=== PATIENT | male | born 1955 | race Caucasian/White ===

== ENCOUNTER 2017-03-07 08:47 | Inpatient (IN) | payer OTHER ==
[~2017-03-07] VITALS: Ht 182.9 cm; Wt 99.4 kg
[2017-03-07] VITALS (9 sets, daily range): BP systolic 91–121; BP diastolic 62–71; PULSE 82–114; RESP 16–20; TEMP 96.2–98.4; O2SAT 96–100
[2017-03-07] MEDS ORDERED: SODIUM CHLOR 0.9% 1000 ML INJ 1,000 ML IV SCH (10:03)
[2017-03-07] MEDS ORDERED: SODIUM CHLORIDE 0.9% FLUSH 10 ML FLUSH IV FLUSH PRN ×2 (10:15→12:45)
--- NOTE | 2017-03-07 10:20 | PD ---
HPI Chief Complaint: GI Complaint Time Seen by Provider: 10:02 Travel History International Travel<30 days: No Contact w/Intl Traveler<30days: No Traveled to known affect area: No History of Present Illness HPI Patient is 61-year-old male who presents to emergency room complaints of black tarry stools as well as red blood per vomitus. Patient reports that he has had history of gastric ulcers, reports that the last time he had problems with bleeding ulcers was 25 years ago. At that time, patient had blood transfusions and was seen by gastrointestinal doctors in [place]. Patient reports that he has had no issues with this recently, reports that he has not follow-up with a gastro intestinal doctor since his bleeding ulcer 25 years ago. Patient reports that he normally has bowel movements twice a day, reports that he did not have a bowel movement yesterday. Patient reports that last night, he drink some tamika humphrey and of vomiting and had streaks of bright red blood in his vomitus. Patient reports that this morning, he noticed dark tarry stools. Patient reports that he does take a baby aspirin every several day, he is feeling lightheaded and dizzy. Patient reports that he feels overall weakness with an achy body. Denies chest pain/sob. Denies abdominal pain. Denies chest pain/sob. PFSH Past Medical History Ulcer: Yes (gastric ulcers) Past Surgical History Surgical History: No Previous Surgery Social History Alcohol Use: No Tobacco Use: No Substance Use: No Allergies-Medications (Allergen,Severity, Reaction): Coded Allergies: No Known Allergies (Unverified , 03/07/17) Reported Meds & Prescriptions Reported Meds & Active Scripts Active Reported Glucosamine (Glucosamine Sulfate) 1,000 Mg Cap 1,000 Mg PO DAILY Aspirin Low Dose (Aspirin) 81 Mg Chew 81 Mg CHEW DAILY Review of Systems General / Constitutional: No: Fever Eyes: No: Visual changes HENT: Positive: Lightheadedness, No: Headaches Cardiovascular: No: Chest Pain or Discomfort Respiratory: No: Shortness of Breath Gastrointestinal: Positive: Hematemesis, Hematochezia, Constipation, No: Nausea , Vomiting, Abdominal Pain Genitourinary: No: Dysuria Musculoskeletal: No: Pain Skin: No Rash Neurologic: Positive: Dizziness, No: Weakness Psychiatric: No: Depression Endocrine: No: Polydipsia Hematologic/Lymphatic: No: Easy Bruising Physical Exam Narrative GENERAL: Mild distress SKIN: Focused skin assessment warm/dry. HEAD: Atraumatic. Normocephalic. EYES: Pupils equal and round. No scleral icterus. No injection or drainage. ENT: No nasal bleeding or discharge. Mucous membranes pink and moist. NECK: Trachea midline. No JVD. CARDIOVASCULAR: Tachycardic. No murmur appreciated. RESPIRATORY: No accessory muscle use. Clear to auscultation. Breath sounds equal bilaterally. GASTROINTESTINAL: Abdomen soft, non-tender, nondistended. Hepatic and splenic margins not palpable. Rectal exam performed with RN at bedside - patient with melanotic stools which are heme positive MUSCULOSKELETAL: No obvious deformities. No clubbing. No cyanosis. No edema. NEUROLOGICAL: Awake and alert. No obvious cranial nerve deficits. Motor grossly within normal limits. Normal speech. PSYCHIATRIC: Appropriate mood and affect; insight and judgment normal. Data Data Last Documented VS Vital Signs Date Time Temp Pulse Resp B/P (MAP) Pulse Ox O2 Delivery O2 Flow Rate FiO2 03/07/17 12:22 99 18 114/67 (83) 99 Room Air 03/07/17 08:54 98.4 Orders Orders Complete Blood Count With Diff (03/07/17 10:03) Comprehensive Metabolic Panel (03/07/17 10:03) Lipase (03/07/17 10:03) Prothrombin Time / Inr (Pt) (03/07/17 10:03) Act Partial Throm Time (Ptt) (03/07/17 10:03) Urinalysis - C+S If Indicated (03/07/17 10:03) Iv Access Insert/Monitor (03/07/17 10:03) Ecg Monitoring (03/07/17 10:03) Oximetry (03/07/17 10:03) NPO (03/07/17 10:03) Sodium Chlor 0.9% 1000 Ml Inj (Ns 1000 M (03/07/17 10:03) Sodium Chloride 0.9% Flush (Ns Flush) (03/07/17 10:15) Electrocardiogram (03/07/17 10:03) Type And Screen (03/07/17 10:03) Influenzae A/B Antigen (03/07/17 10:03) Sodium Chloride 0.9... W/Pantoprazole In (03/07/17 11:11) Sodium Chloride 0.9... W/Pantoprazole In (03/07/17 11:11) Sodium Chlor 0.9% 1000 Ml Inj (Ns 1000 M (03/07/17 11:15) Insulin Human Regular Inj (Novolin R Inj (03/07/17 12:15) Admit Order (Ed Use Only) (03/07/17 12:29) Consult Gastroenterology (03/07/17 ) Labs Laboratory Tests Test 03/07/17 10:23 03/07/17 12:10 White Blood Count 12.1 TH/MM3 Red Blood Count 3.90 MIL/MM3 Hemoglobin 11.2 GM/DL Hematocrit 33.1 % Mean Corpuscular Volume 84.8 FL Mean Corpuscular Hemoglobin 28.7 PG Mean Corpuscular Hemoglobin Concent 33.8 % Red Cell Distribution Width 13.1 % Platelet Count 282 TH/MM3 Mean Platelet Volume 9.0 FL Neutrophils (%) (Auto) 78.9 % Lymphocytes (%) (Auto) 14.3 % Monocytes (%) (Auto) 6.4 % Eosinophils (%) (Auto) 0.1 % Basophils (%) (Auto) 0.3 % Neutrophils # (Auto) 9.6 TH/MM3 Lymphocytes # (Auto) 1.7 TH/MM3 Monocytes # (Auto) 0.8 TH/MM3 Eosinophils # (Auto) 0.0 TH/MM3 Basophils # (Auto) 0.0 TH/MM3 CBC Comment DIFF FINAL Differential Comment Prothrombin Time 10.9 SEC Prothromb Time International Ratio 1.0 RATIO Activated Partial Thromboplast Time 20.3 SEC Blood Urea Nitrogen 35 MG/DL Creatinine 0.94 MG/DL Random Glucose 493 MG/DL Total Protein 6.2 GM/DL Albumin 3.2 GM/DL Calcium Level 8.4 MG/DL Alkaline Phosphatase 49 U/L Aspartate Amino Transf (AST/SGOT) 8 U/L Alanine Aminotransferase (ALT/SGPT) 17 U/L Total Bilirubin 0.5 MG/DL Sodium Level 135 MEQ/L Potassium Level 4.3 MEQ/L Chloride Level 103 MEQ/L Carbon Dioxide Level 19.6 MEQ/L Anion Gap 12 MEQ/L Estimat Glomerular Filtration Rate 82 ML/MIN Lipase 114 U/L Urine Collection Type CLEAN CATCH Urine Color YELLOW Urine Turbidity CLEAR Urine pH 5.5 Urine Specific [place] 1.035 Urine Protein NEG mg/dL Urine Glucose (UA) 1000 OR GREATER mg/dL Urine Ketones 15 mg/dL Urine Occult Blood NEG Urine Nitrite NEG Urine Bilirubin NEG Urine Leukocyte Esterase NEG Urine RBC 0-3 /hpf Urine Squamous Epithelial Cells 0-5 /hpf Microscopic Urinalysis Comment CULT NOT INDICATED Urine Collection Time 12:10 [facility] Medical Decision Making Medical Screen Exam Complete: Yes Emergency Medical Condition: Yes Medical Record Reviewed: Yes Interpretation(s) EKG at 1030: Sinus tach at 111bpm, qt/qtc: 332/397 Vital Signs Date Time Temp Pulse Resp B/P (MAP) Pulse Ox O2 Delivery O2 Flow Rate FiO2 03/07/17 08:54 98.4 114 16 116/71 (86) 99 Differential Diagnosis Differential includes gastric ulcer, anemia, electrolyte abnormality Narrative Course 61-year-old male who presents to emergency room for evaluation of possible bleeding gastric ulcer. Patient reports that he noticed bright red blood in his vomitus last night, reports that this morning he had melanotic stools. Patient reports that symptoms are similar to when he had a bleeding gastric ulcer 25 years ago in [facility]. Patient has not followed up with a sand caster since then. Patient currently takes a baby aspirin as well as chondroitin glucosamine, he is not on any other medications. Patient is tachycardic on evaluation, patient is symptomatic and that he feels lightheaded and dizzy. CBC, CMP, type and screen ordered for patient. Protonix as well as Protonix drip ordered as patient is presumed to have an upper GI bleed. IV fluids ordered for patient. Patient was placed on a air sampling and monitoring upon arrival to the emergency room. Patient will require admission to the hospital for further workup of upper GI bleed. Vital Signs Date Time Temp Pulse Resp B/P (MAP) Pulse Ox O2 Delivery O2 Flow Rate FiO2 03/07/17 11:26 97 18 91/69 (76) 100 Room Air 03/07/17 10:24 16 03/07/17 10:24 100 Room Air 03/07/17 08:54 98.4 114 16 116/71 (86) 99 CBC & BMP Diagram 03/07/17 10:23 Total Protein 6.2 L, Albumin 3.2 L, Calcium Level 8.4 L, Alkaline Phosphatase 49 , Aspartate Amino Transf (AST/SGOT) 8 L, Alanine Aminotransferase (ALT/SGPT) 17 , Total Bilirubin 0.5 Patient reports that he last saw a physician 20 years ago, he is mostly diabetic as his blood sugar is 493, 2 L of IV fluid were given to him, 6 units of normal insulin ordered. Hemoglobin 11.2 which is stable this time. Consult placed to GI for GI bleed. Call made to [facility] for admission Case reviewed with Dr. Hernández who accepts pt to service Diagnosis Primary Impression: GI bleed Qualified Codes: K92.1 - Melena Additional Impression: Hyperglycemia Admitting Information Admitting Physician Requests: Admit Pascale Ramirez DO Mar 07, 2017 10:19
[2017-03-07] MEDS ORDERED: GLUC100017 PO (10:31)
[2017-03-07] MEDS ORDERED: ASPI81CH37 CHEW (10:31)
[2017-03-07 10:39] LABS: AUTOMATED NEUTROPHIL # 9.6 TH/MM3 (1.8-7.7); BASOPHIL % 0.3 % (0.0-2.0); EOSINOPHIL % 0.1 % (0.0-4.0); HEMATOCRIT 33.1 % (39.0-51.0); HEMO FLAGS DIFF FINAL; LYMPH % 14.3 % (9.0-44.0); LYMPHOCYTE # 1.7 TH/MM3 (1.0-4.8); MEAN CELL VOLUME 84.8 FL (80.0-100.0); MEAN CORPUSCULAR HEMOGLOBIN 28.7 PG (27.0-34.0); MEAN CORPUSCULAR HGB CONC 33.8 % (32.0-36.0); MONO % 6.4 % (0.0-8.0); NEUT % 78.9 % (16.0-70.0); PLATELET COUNT 282 TH/MM3 (150-450); RED CELL DISTRIBUTION WIDTH 13.1 % (11.6-17.2); WHITE BLOOD COUNT 12.1 TH/MM3 (4.0-11.0)
[2017-03-07 11:02] LABS: PROTHROMBIN TIME - PATIENT 10.9 SEC (9.8-11.6)
[2017-03-07 11:07] LABS: BLOOD UREA NITROGEN 35 MG/DL (7-18); GLOMERULAR FILTRATION RATE 82 ML/MIN (>89)
[2017-03-07 11:08] LABS: ALKALINE PHOSPHATASE 49 U/L (45-117); ALT (GPT) 17 U/L (12-78); ANION GAP 12 MEQ/L (5-15); AST (GOT) 8 U/L (15-37); BICARBONATE 19.6 MEQ/L (21.0-32.0); CHLORIDE 103 MEQ/L (98-107); POTASSIUM 4.3 MEQ/L (3.5-5.1); SODIUM (NA) 135 MEQ/L (136-145); TOTAL BILIRUBIN ADULT 0.5 MG/DL (0.2-1.0)
[2017-03-07] MEDS ORDERED: PANTOPRAZOLE INJ 80 MG in SODIUM CHLORIDE 0.9% INJ 35 ML IV ONE (11:11)
[2017-03-07] MEDS ORDERED: PANTOPRAZOLE INJ 80 MG in SODIUM CHLORIDE 0.9% INJ 100 ML IV SCH (11:11)
[2017-03-07] MEDS ORDERED: SODIUM CHLOR 0.9% 1000 ML INJ 1,000 ML IV ONE (11:15)
[2017-03-07 11:26] LABS: APTT (PATIENT) 20.3 SEC (24.3-30.1)
[2017-03-07] MEDS ORDERED: INSULIN HUMAN REGULAR 1,000 UNITS/10 ML VIAL SQ ONE (12:15)
[2017-03-07 12:20] LABS: BLOOD, URINE NEG (NEG); GLUCOSE,URINE 1000 OR GREATER mg/dL (NEG); KETONE, URINE 15 mg/dL (NEG); NITRITE,URINE NEG (NEG); PH, URINE 5.5 (5.0-8.5)
[2017-03-07 12:29] LABS: COMMENT (UR) CULT NOT INDICATED; CULTURE IF INDICATED CULT NOT INDICATED; METHOD OF COLLECTION CLEAN CATCH; RBC, URINE 0-3 /hpf (0-3); SQUAMOUS EPITHELIAL CELL URINE 0-5 /hpf (0-5); URINE COLOR YELLOW (YELLW/STRAW)
[2017-03-07] MEDS ORDERED: TEMAZEPAM 15 MG CAP PO PRN (12:45)
[2017-03-07] MEDS ORDERED: SENNOSIDES 8.6 MG TAB PO PRN (12:45)
[2017-03-07] MEDS ORDERED: NALOXONE HCL 0.4 MG/ML AMP IV PUSH PRN (12:45)
[2017-03-07] MEDS ORDERED: ONDANSETRON HCL 4 MG/2 ML VIAL IVP PRN (12:45)
[2017-03-07] MEDS ORDERED: LACTULOSE SYRUP 20 GM/30 ML CUP PO PRN (12:45)
[2017-03-07] MEDS ORDERED: MAGNESIUM HYDROXIDE SUSP 30 ML CUP PO PRN (12:45)
[2017-03-07] MEDS ORDERED: BISACODYL 10 MG SUPP RECTAL PRN (12:45)
[2017-03-07] MEDS ORDERED: ACETAMINOPHEN 325 MG TAB PO PRN (12:45)
[2017-03-07] MEDS ORDERED: DEXTROSE 50% IN WATER 50 ML VIAL(D50) IV PUSH PRN (13:00)
[2017-03-07] MEDS ORDERED: GLUCAGON 1 MG/ML VIAL OTHER PRN (13:00)
[2017-03-07] MEDS: SODIUM CHLOR 0.9% 1000 ML INJ 1,000 ML IV SCH ×2 (13:44→21:52)
--- NOTE | 2017-03-07 14:32 | EKG ---
Date Performed: 03/07/2017 Time Performed: 10:30:19 PTAGE: 61 years EKG: SINUS TACHYCARDIA WITH OCCASIONAL SUPRAVENTRICULAR PREMATURE COMPLEXES MINIMAL VOLTAGE CRIT ERIA FOR LVH, CONSIDER NORMAL VARIANT ABNORMAL RHYTHM ECG NO PREVIOUS TRACING DOCTOR: Sandeep Carias Interpretating Date/Time 03/07/2017 14:31:17
[2017-03-07] MEDS: INSULIN ASPART SUPPLEMENTAL SCALE SQ SCH ×2 (17:00→21:52)
--- NOTE | 2017-03-07 17:47 | HHI.HP ---
[facility] [place] No Primary Care Physician Admission Diagnosis GI Bleed, hyperglycemia Diagnoses: (1) Melena Diagnosis: Principal (2) Diabetes mellitus, new onset Diagnosis: Principal Chief Complaint: Black stools and lightheadedness Travel History International Travel<30 Days: No Contact w/Intl Traveler <30 Da: No Traveled to Known Affected Are: No History of Present Illness Written by Chandler Flores, acting as scribe for Dr. Hernández on 03/07/17 at 17: 41. 61 year-old male with history of gastric ulcers over 25 years ago who presented to hospital because of dark stools and lightheadedness. Patient states that this morning he woke up and approximately 6:30 AM and he was lightheaded and he had a bowel movement and noticed he had dark black stools so he came to the hospital for evaluation. Patient indicates that last night he was having an episode of some nausea vomiting where he drank some water and he vomited water right back up he states that there might have been some red tinged to it. He was able to drink some tamika humphrey and it stayed down. Because of the black stools he came to the hospital for evaluation. Upon workup patient was found to have glucose 493 with mild metabolic acidosis. Beta hydroxybutyrate was unremarkable. Is recommended by the ER physician that the patient be admitted the hospital for evaluation by the GI physician for the melena and heme positive stool. Patient denies any polydipsia, polyphagia, weight changes, abdominal pain, chest pain, shortness of breath, dyspnea. Review of Systems Constitutional: COMPLAINS OF: Dizziness Gastrointestinal: COMPLAINS OF: Black stools, Nausea, Vomiting Except as stated in HPI: all other systems reviewed are Neg Past Family Social History Past Medical History History of gastric ulcers Past Surgical History EGD Reported Medications Reported Meds & Active Scripts Active Reported Glucosamine (Glucosamine Sulfate) 1,000 Mg Cap 1,000 Mg PO DAILY Aspirin Low Dose (Aspirin) 81 Mg Chew 81 Mg CHEW DAILY Allergies: Coded Allergies: No Known Allergies (Unverified , 03/07/17) Family History Reviewed is significant for father from lung cancer, mother from Alzheimer's Social History Patient denies any tobacco, alcohol or illicit drugs Physical Exam Vital Signs Vital Signs Date Time Temp Pulse Resp B/P (MAP) Pulse Ox O2 Delivery O2 Flow Rate FiO2 03/07/17 14:17 82 18 104/65 (78) 99 03/07/17 13:33 99 21 03/07/17 12:22 99 18 114/67 (83) 99 Room Air 03/07/17 11:26 97 18 91/69 (76) 100 Room Air 03/07/17 10:24 16 03/07/17 10:24 100 Room Air 03/07/17 08:54 98.4 114 16 116/71 (86) 99 Physical Exam GENERAL: Well-developed, well-nourished, in no acute distress. alert and orientated HEENT: Head is normocephalic without any lesions or masses noted. Facial features are symmetric. Eyes: Pupils equal round reactive to light. Extraocular muscles are intact. Conjunctivae were clear. Oropharyngeal: Pharynx without any erythema edema. Tongue is midline without deviation. Buccal mucosa is moist without any masses or lesions NECK: Supple without any masses. Trachea midline no deviation. No JVD, no bruits are appreciated CARDIAC: Regular rhythm, regular rate. S1/S2 are heard. No murmurs gallops or rubs. LUNGS: Clear to auscultation bilaterally. No wheeze, rhonchi or rales. No use of accessory muscles on inspiration or expiration. ABDOMEN: Soft, nontender. Nondistended. Bowel sounds heard in all 4 quadrants. No organomegaly or masses. Negative rebound, negative guarding EXTREMITIES: No edema, pulses are equal bilaterally. No cyanosis or clubbing NEUROLOGY: Mood and affect appear appropriate. Cranial nerves II through XII grossly intact. Muscle strength 5/5 in upper and lower extremities bilaterally. Deep tendon reflexes are 2+ in upper and lower extremities bilaterally. Laboratory Laboratory Tests Test 03/07/17 10:23 03/07/17 12:10 03/07/17 12:55 White Blood Count 12.1 Red Blood Count 3.90 Hemoglobin 11.2 Hematocrit 33.1 Mean Corpuscular Volume 84.8 Mean Corpuscular Hemoglobin 28.7 Mean Corpuscular Hemoglobin Concent 33.8 Red Cell Distribution Width 13.1 Platelet Count 282 Mean Platelet Volume 9.0 Neutrophils (%) (Auto) 78.9 Lymphocytes (%) (Auto) 14.3 Monocytes (%) (Auto) 6.4 Eosinophils (%) (Auto) 0.1 Basophils (%) (Auto) 0.3 Neutrophils # (Auto) 9.6 Lymphocytes # (Auto) 1.7 Monocytes # (Auto) 0.8 Eosinophils # (Auto) 0.0 Basophils # (Auto) 0.0 CBC Comment DIFF FINAL Differential Comment Prothrombin Time 10.9 Prothromb Time International Ratio 1.0 Activated Partial Thromboplast Time 20.3 Blood Urea Nitrogen 35 Creatinine 0.94 Random Glucose 493 Total Protein 6.2 Albumin 3.2 Calcium Level 8.4 Alkaline Phosphatase 49 Aspartate Amino Transf (AST/SGOT) 8 Alanine Aminotransferase (ALT/SGPT) 17 Total Bilirubin 0.5 Sodium Level 135 Potassium Level 4.3 Chloride Level 103 Carbon Dioxide Level 19.6 Anion Gap 12 Estimat Glomerular Filtration Rate 82 Lipase 114 Urine Collection Type CLEAN CATCH Urine Color YELLOW Urine Turbidity CLEAR Urine pH 5.5 Urine Specific [place] 1.035 Urine Protein NEG Urine Glucose (UA) 1000 OR GREATER Urine Ketones 15 Urine Occult Blood NEG Urine Nitrite NEG Urine Bilirubin NEG Urine Leukocyte Esterase NEG Urine RBC 0-3 Urine Squamous Epithelial Cells 0-5 Microscopic Urinalysis Comment CULT NOT INDICATED Urine Collection Time 12:10 B-Hydroxybutyrate 0.34 Date/Time Source Procedure Growth Status 03/07/17 10:16 Nasal Aspirate Influenza Types A,B Antigen (DEMETRIUS) - Final NEGATIVE FOR FLU A AND B ANTIGEN.... Complete Result Diagram: 03/07/17 1023 03/07/17 1023 Caprini VTE Risk Assessment Caprini VTE Risk Assessment: Mod/High Risk (score >= 2) VTE Pharm Contraindication: Active bleeding Caprini Risk Assessment Model Point Value = 1 Point Value = 2 Point Value = 3 Point Value = 5 Age 41-60 Minor surgery BMI > 25 kg/m2 Swollen legs Varicose veins or History of unexplained or recurrent spontaneous Oral contraceptives or hormone replacement Sepsis (< 1 month) Serious lung disease, including pneumonia (< 1 month) Abnormal pulmonary function Acute myocardial infarction Congestive heart failure (< 1 month) History of inflammatory bowel disease Medical patient at bed rest Age 61-74 Arthroscopic surgery Major open surgery (> 45 min) Laparoscopic surgery (> 45 min) Malignancy Confined to bed (> 72 hours) Immobilizing plaster cast Central venous access Age >= 75 History of VTE Family history of VTE Factor V Leiden Prothrombin [id number] Lupus anticoagulant Anticardiolipin antibodies Elevated serum homocysteine Heparin-induced thrombocytopenia Other congenital or acquired thrombophilia Stroke (< 1 month) Elective arthroplasty Hip, pelvis, or leg fracture Acute spinal cord injury (< 1 month) Prophylaxis Regimen Total Risk Factor Score Risk Level Prophylaxis Regimen 0-1 Low Early ambulation 2 Moderate Order ONE of the following: *Sequential Compression Device (SCD) *Heparin 5000 units SQ BID 3-4 Higher Order ONE of the following medications: *Heparin 5000 units SQ TID *Enoxaparin/Lovenox 40 mg SQ daily (WT < 150 kg, CrCl > 30 mL/min) *Enoxaparin/Lovenox 30 mg SQ daily (WT < 150 kg, CrCl > 10-29 mL/min) *Enoxaparin/Lovenox 30 mg SQ BID (WT < 150 kg, CrCl > 30 mL/min) AND/OR *Sequential Compression Device (SCD) 5 or more Highest Order ONE of the following medications: *Heparin 5000 units SQ TID (Preferred with Epidurals) *Enoxaparin/Lovenox 40 mg SQ daily (WT < 150 kg, CrCl > 30 mL/min) *Enoxaparin/Lovenox 30 mg SQ daily (WT < 150 kg, CrCl > 10-29 mL/min) *Enoxaparin/Lovenox 30 mg SQ BID (WT < 150 kg, CrCl > 30 mL/min) AND *Sequential Compression Device (SCD) Assessment and Plan Assessment and Plan New onset diabetes Patient with mild metabolic acidosis, however no anion gap, beta hydroxybutyrate was normal We'll start Accu-Cheks with sliding scale insulin Check hemoglobin A1c Consult consumer educator, dietitian Melena with heme positive stool Patient does have history of acid ulcers Continue Protonix drip GI consulted for recommendations We'll keep clear liquid diet at this time, nothing by mouth after midnight. Likely will require EGD/colonoscopy procedure, DVT prevention Sequential compression devices, avoid chemical prophylaxis secondary to GI bleed This note was transcribed by fady BROWN. I, Dr. Meenakshi Hernández personally performed the history, physical exam, and medical decision making; and confirmed the accuracy of the information in the transcribed note. Authenticated by Dr. Meenakshi Hernández on 03/07/17 at 17:41. Physician Certification 2 Midnight Certification Type: Admission for Inpatient Services Order for Inpatient Services The services are ordered in accordance with Medicare regulations or non- Medicare payer requirements, as applicable. In the case of services not specified as inpatient-only, they are appropriately provided as inpatient services in accordance with the 2-midnight benchmark. Estimated LOS (days): 2 days is the estimated time the patient will need to remain in the hospital, assuming treatment plan goals are met and no additional complications. Post-Hospital Plan: Home Chandler Flores Mar 07, 2017 17:47 Meenakshi Hernández MD Mar 07, 2017 18:23
[2017-03-07 19:18] LABS: HEMATOCRIT 27.2 % (39.0-51.0); REVIEW FLAG FINAL
[2017-03-07 20:30] LABS: HEMOGLOBIN A1a 1.5 %; HEMOGLOBIN A1b 3.2 %; HEMOGLOBIN Ao 73.2 %; HEMOGLOBIN LA1C 4.3 %; HEMOGLOBIN P3 5.5 %
[2017-03-07] MEDS: PANTOPRAZOLE 80 MG/100 ML NS IV SCH ×2 (21:51)
[2017-03-07] MEDS: SODIUM CHLORIDE 0.9% FLUSH 10 ML FLUSH IV FLUSH SCH (21:51)
[2017-03-07] MEDS: DOCUSATE SODIUM 50 MG/SENNA 8.6 MG TAB PO SCH (21:52)
[2017-03-07 22:07] LABS: HEMATOCRIT 25.2 % (39.0-51.0); REVIEW FLAG FINAL
[2017-03-08] VITALS (7 sets, daily range): BP systolic 104–146; BP diastolic 56–73; PULSE 80–87; RESP 12–25; TEMP 96.2–99; O2SAT 96–100
[2017-03-08] MEDS: PANTOPRAZOLE 80 MG/100 ML NS IV SCH ×4 (06:16→17:19)
[2017-03-08] MEDS: INSULIN ASPART SUPPLEMENTAL SCALE SQ SCH ×4 (08:00→21:00)
[2017-03-08 08:42] LABS: POTASSIUM 3.7 MEQ/L (3.5-5.1)
[2017-03-08 08:46] LABS: BICARBONATE 22.4 MEQ/L (21.0-32.0)
[2017-03-08] MEDS: SODIUM CHLORIDE 0.9% FLUSH 10 ML FLUSH IV FLUSH SCH ×2 (08:58→21:02)
[2017-03-08] MEDS: DOCUSATE SODIUM 50 MG/SENNA 8.6 MG TAB PO SCH ×2 (08:58→21:00)
[2017-03-08] MEDS: SODIUM CHLOR 0.9% 1000 ML INJ 1,000 ML IV SCH (08:58)
[2017-03-08 09:02] LABS: AUTOMATED NEUTROPHIL # 3.6 TH/MM3 (1.8-7.7); BASOPHIL % 0.6 % (0.0-2.0); EOSINOPHIL # 0.1 TH/MM3 (0-0.4); EOSINOPHIL % 1.2 % (0.0-4.0); HEMATOCRIT 25.7 % (39.0-51.0); HEMO FLAGS DIFF FINAL; LYMPH % 29.7 % (9.0-44.0); LYMPHOCYTE # 1.8 TH/MM3 (1.0-4.8); MEAN CELL VOLUME 85.7 FL (80.0-100.0); MEAN CORPUSCULAR HEMOGLOBIN 28.3 PG (27.0-34.0); MONO % 7.5 % (0.0-8.0); PLATELET COUNT 212 TH/MM3 (150-450); RED BLOOD COUNT 2.99 MIL/MM3 (4.50-5.90); RED CELL DISTRIBUTION WIDTH 12.4 % (11.6-17.2)
--- NOTE | 2017-03-08 09:12 | HHI.PR ---
Subjective Remarks Was seen after the procedure. In the chair, says she feel good, he is hungry,. No n/v/d/c. No pain. Did not have a BM . No fever or chills. Objective Vitals Vital Signs Date Time Temp Pulse Resp B/P (MAP) Pulse Ox O2 Delivery O2 Flow Rate FiO2 03/08/17 00:00 96.2 82 20 108/66 (80) 99 03/07/17 22:17 99 21 03/07/17 20:00 98.1 88 20 110/62 (78) 99 03/07/17 16:00 97.6 95 121/70 (87) 96 03/07/17 14:17 82 18 104/65 (78) 99 03/07/17 13:33 99 21 03/07/17 12:22 99 18 114/67 (83) 99 Room Air 03/07/17 11:26 97 18 91/69 (76) 100 Room Air 03/07/17 10:24 16 03/07/17 10:24 100 Room Air I/O 03/07/17 03/07/17 03/07/17 03/08/17 03/08/17 03/08/17 07:00 15:00 23:00 07:00 15:00 23:00 Intake Total 4070 ml 1812 ml Output Total 900 ml 250 ml Balance 3170 ml -250 ml 1812 ml Intake IV Total 4070 ml 1812 ml Output Urine Total 900 ml 250 ml # Bowel Movements 0 Result Diagram: 03/08/17 0735 03/08/17 0735 Objective Remarks GENERAL: Well-developed, well-nourished, in no acute distress. alert and orientated CARDIAC: Regular rhythm, regular rate. S1/S2 are heard. No murmurs gallops or rubs. LUNGS: Clear to auscultation bilaterally. No wheeze, rhonchi or rales. No use of accessory muscles on inspiration or expiration. ABDOMEN: Soft, nontender. Nondistended. Bowel sounds heard in all 4 quadrants. No organomegaly or masses. Negative rebound, negative guarding EXTREMITIES: No edema, pulses are equal bilaterally. No cyanosis or clubbing NEUROLOGY: Mood and affect appear appropriate. Cranial nerves II through XII grossly intact. Muscle strength 5/5 in upper and lower extremities bilaterally. Deep tendon reflexes are 2+ in upper and lower extremities bilaterally. A/P Problem List: (1) Melena ICD Code: K92.1 - Melena (2) Diabetes mellitus, new onset ICD Code: E11.9 - Type 2 diabetes mellitus without complications Assessment and Plan New onset diabetes, uncontrolled a1c 12.1 Patient with mild metabolic acidosis, however no anion gap, beta hydroxybutyrate was normal We'll start Accu-Cheks with sliding scale insulin Hemoglobin A1c 12.1 Consult ems educator, dietitian, has seen the patient . Patient needs insulin at DC. To f/u as OP with PCP and consultants. Melena with heme positive stool. Duodenal ulcer. Gastritis. S/P EGD with Bx and bleeding control by ablation of an ulcer Actively bleeding duodenal ulcer which was cauterized, was likely the reason for the bleeding Gastritis biopsy from the antrum to rule out H. pylori Clear liquid Protonix 40 mg daily Watch H&H and packed RBC as needed If patient has H. pylori patient will need treatment Follow-up biopsy Follow-up as an outpatient in 1 week to 2 weeks with hem/onc Colonoscopy as an outpatient Continue Protonix drip at this time. will DC on protonix 40 mg daily per DVT prevention Sequential compression devices, avoid chemical prophylaxis secondary to GI bleed Poss DC later today or tomorrow if tolerates diet and if BS better controlled. Discharge Planning DC home in stable condition. To follow-up with PCP and consultants as outpatient Medications per medication reconciliation Activity ad nando. as tolerated Diet: diabetic diet Meenakshi Hernández MD Mar 08, 2017 09:12
[2017-03-08] MEDS ORDERED: SODIUM CHLORID 0.9% 500 ML IV PRN (09:45)
[2017-03-08] MEDS ORDERED: INSULIN HUMAN REGULAR 1,000 UNITS/10 ML VIAL SQ PRN (09:45)
[2017-03-08] MEDS ORDERED: LACTATED RINGER'S 1000 ML IV PRN (09:45)
[2017-03-08] MEDS ORDERED: METOPROLOL TARTRATE 25 MG TAB PO PRN (09:45)
[2017-03-08] MEDS ORDERED: CHLORHEXIDINE GLUCONATE 2 % 1 PACK (2 CLOTHS) TOPICAL PRN (09:45)
[2017-03-08] MEDS ORDERED: POVIDONE IODINE 5% (ANTISEPSIS KIT) 4 APPLICATIONS EACH NARE PRN (09:45)
[2017-03-08] MEDS ORDERED: PROPOFOL 200 MG/20 ML AMP IV PUSH ONE (10:06)
--- NOTE | 2017-03-08 10:22 | MB ---
cc: EDIN HAMMOND MIRELA MD DATE OF CONSULTATION 03/08/2017 DATE OF [address] Hernández REASON FOR REFERRAL GI bleed, melena. Thank you for the consultation. This is a pleasant 61-year-old gentleman who has a history of gastric ulcer 25 years ago. Apparently he had GI bleed then. He had full workup at that time but since then, no other workup. He does not have a primary care. The patient came to the hospital because he had black stool and on Sunday, three days ago, there were a couple episodes of nausea with pink tinge to it and nausea with vomiting with pink tinge to it. The patient started having lightheadedness yesterday and with the black stool, he came to the hospital for evaluation. He was found to have anemia. The patient denied any abdominal pain. His glucose was 493 with mild metabolic acidosis. Apparently, the patient is not well taken care of as far as health [place]. PAST MEDICAL HISTORY Significant for: 1. Peptic ulcer disease 2. Upper endoscopy MEDICATIONS 1. Glucosamine 2. Aspirin ALLERGIES NO KNOWN DRUG ALLERGIES. SOCIAL HISTORY No tobacco, drug or alcohol. FAMILY HISTORY Significant for Alzheimer's and lung cancer. REVIEW OF SYSTEMS All 12-points negative except HPI. Currently, no dizziness or lightheadedness. PHYSICAL EXAMINATION Alert, oriented in no acute distress. VITAL SIGNS: Stable. HEENT: Pupils are round and reactive to light. NECK: Supple. CHEST: Clear to auscultation and percussion. CARDIAC: Regular rate and rhythm. No murmur or gallop. ABDOMEN: Soft and nondistended. Positive bowel sounds. No hepatosplenomegaly. EXTREMITIES: No edema, clubbing or cyanosis. NEUROLOGIC: Intact. PSYCHOLOGIC: Appropriate. LABORATORY DATA White count 6.01 down from 12.1, hemoglobin 8.5 down from 11.2, platelet 212. INR 1.04. Glucose 184 down from 493. Potassium 3.7. LFT's are normal. ASSESSMENT/PLAN 1. A 61-year-old gentleman with GI bleed most likely peptic ulcer disease causing the anemia. The patient will need urgent upper endoscopy. We will plan on doing this today to try to control the bleed if there is any. 2. We will continue PPI. 3. We will monitor H&H with packed RBC as needed. 4. The patient will need colonoscopy as an outpatient. He is reluctant to have any procedure done to his colon. MD MADDY Franklin/GISSELLE /9:51 AM /10:12 AM
--- NOTE | 2017-03-08 12:22 | PD.PROCEDR ---
GI Procedure PROCEDURE PERFORMED EGD with Bx and bleeding control by ablation of an ulcer INDICATION FOR PROCEDURE Nausea vomiting, hematemesis, anemia PROCEDURE: The procedure, risks and benefits were discussed with Mr. Howe and informed consent was obtained. Anesthesia sedated him with Diprivan. He was placed in the left lateral decubitus position. EGD: The Pentax videoscope was introduced through the oropharynx and advanced to the second portion of the duodenum under direct visualization. Retroflexion was performed in the stomach and the duodenum there was a large ulcer in the duodenal bulb was obvious vessel that was oozing this was cauterized with complete bleeding control, patient also has gastritis biopsy from the antrum rule out H. pylori. FINDINGS: Actively bleeding duodenal ulcer which was cauterized, was likely the reason for the bleeding Gastritis biopsy from the antrum to rule out H. pylori ESTIMATED BLOOD LOSS: 15 cc SPECIMENS REMOVED: antrum COMPLICATIONS: none IMPRESSION: Duodenal ulcer Gastritis PLAN: Clear liquid Protonix 40 mg daily Watch H&H and packed RBC as needed If patient has H. pylori patient will need treatment Follow-up biopsy Follow-up as an outpatient in 1 week to 2 weeks Colonoscopy as an outpatient Van Schumacher MD Mar 08, 2017 12:22
[2017-03-08] MEDS ORDERED: GLUCKIT15 (17:18)
[2017-03-08] MEDS ORDERED: PROT40TA PO (17:18)
[2017-03-08] MEDS ORDERED: NOVOLOGP2 SQ (17:19)
[2017-03-08] MEDS ORDERED: LEVEMIR SQ (17:19)
[2017-03-08] MEDS ORDERED: INSU1MIS15 (17:19)
[2017-03-08] MEDS ORDERED: LANCETS1 MI1 (17:19)
[2017-03-08] MEDS ORDERED: GLUCTES12 (17:19)
--- NOTE | 2017-03-08 17:19 | HHI.DCPOC ---
Discharge Care Plan Goals to Promote Your Health * To prevent worsening of your condition and complications * To maintain your health at the optimal level Directions to Meet Your Goals Take your medications as prescribed Follow your dietary instruction Follow activity as directed Keep your appointments as scheduled Take your immunizations and boosters as scheduled If your symptoms worsen call your PCP, if no PCP go to Urgent Care Center or Emergency Room Smoking is Dangerous to Your Health. Avoid second hand smoke Call the 24-hour hour crisis hotline for domestic abuse at Meenakshi Hernández MD Mar 08, 2017 17:19
[2017-03-09] MEDS: PANTOPRAZOLE 80 MG/100 ML NS IV SCH ×2 (03:20)
[2017-03-09 06:44] LABS: AUTOMATED NEUTROPHIL # 3.8 TH/MM3 (1.8-7.7); BASOPHIL % 0.7 % (0.0-2.0); EOSINOPHIL # 0.1 TH/MM3 (0-0.4); EOSINOPHIL % 0.8 % (0.0-4.0); HEMATOCRIT 24.1 % (39.0-51.0); HEMO FLAGS DIFF FINAL; LYMPH % 27.8 % (9.0-44.0); LYMPHOCYTE # 1.8 TH/MM3 (1.0-4.8); MEAN CELL VOLUME 84.6 FL (80.0-100.0); MEAN CORPUSCULAR HEMOGLOBIN 28.4 PG (27.0-34.0); MEAN CORPUSCULAR HGB CONC 33.6 % (32.0-36.0); MONO % 9.2 % (0.0-8.0); NEUT % 61.5 % (16.0-70.0); PLATELET COUNT 219 TH/MM3 (150-450); RED BLOOD COUNT 2.85 MIL/MM3 (4.50-5.90); RED CELL DISTRIBUTION WIDTH 12.3 % (11.6-17.2); WHITE BLOOD COUNT 6.3 TH/MM3 (4.0-11.0)
[2017-03-09 06:55] LABS: POTASSIUM 3.6 MEQ/L (3.5-5.1)
[2017-03-09 06:58] LABS: BICARBONATE 23.9 MEQ/L (21.0-32.0)
[2017-03-09] MEDS: DOCUSATE SODIUM 50 MG/SENNA 8.6 MG TAB PO SCH ×2 (08:15→21:00)
[2017-03-09] MEDS: SODIUM CHLORIDE 0.9% FLUSH 10 ML FLUSH IV FLUSH SCH ×2 (08:16→20:58)
[2017-03-09] MEDS: INSULIN ASPART SUPPLEMENTAL SCALE SQ SCH ×4 (08:16→21:01)
[2017-03-09 08:33] VITALS: BP 126/65; PULSE 80; RESP 20; TEMP 98.4; O2SAT 99
--- NOTE | 2017-03-09 10:22 | HHI.GIFU ---
Subjective Remarks Up in chair. No n/v. No abdominal pain. Still passing dark tarry stool. Tolerated regular diet this am. Reports that he had H. Pylori about 25 years ago and was treated when they used the taper. (Mary Sales) Objective Vitals I&O Vital Signs Date Time Temp Pulse Resp B/P (MAP) Pulse Ox O2 Delivery O2 Flow Rate FiO2 03/09/17 08:33 98.4 80 20 126/65 (85) 99 03/08/17 23:44 98.9 80 20 126/67 (86) 99 03/08/17 20:00 99.0 81 20 104/56 (72) 98 03/08/17 16:00 98.4 87 12 126/73 (90) 100 03/08/17 12:00 97.2 25 146/73 (97) 99 03/08/17 10:40 81 15 130/64 (86) 100 03/08/17 10:30 82 15 109/48 (68) 98 03/08/17 10:20 99/53 (68) I/O 03/08/17 03/08/17 03/08/17 03/09/17 03/09/17 03/09/17 07:00 15:00 23:00 07:00 15:00 23:00 Intake Total 1812 ml 333 ml 590.4 ml 598.0 ml Output Total 250 ml Balance 1812 ml 83 ml 590.4 ml 598.0 ml Intake Oral 480 ml 480 ml IV Total 1812 ml 133 ml 110.4 ml 118.0 ml Other 200 ml Output Urine Total 250 ml # Voids 5 1 # Bowel Movements 1 2 0 Laboratory Laboratory Tests Test 03/09/17 06:12 White Blood Count 6.3 Red Blood Count 2.85 Hemoglobin 8.1 Hematocrit 24.1 Mean Corpuscular Volume 84.6 Mean Corpuscular Hemoglobin 28.4 Mean Corpuscular Hemoglobin Concent 33.6 Red Cell Distribution Width 12.3 Platelet Count 219 Mean Platelet Volume 8.4 Neutrophils (%) (Auto) 61.5 Lymphocytes (%) (Auto) 27.8 Monocytes (%) (Auto) 9.2 Eosinophils (%) (Auto) 0.8 Basophils (%) (Auto) 0.7 Neutrophils # (Auto) 3.8 Lymphocytes # (Auto) 1.8 Monocytes # (Auto) 0.6 Eosinophils # (Auto) 0.1 Basophils # (Auto) 0.0 CBC Comment DIFF FINAL Differential Comment Blood Urea Nitrogen 12 Creatinine 0.51 Random Glucose 190 Calcium Level 8.0 Sodium Level 139 Potassium Level 3.6 Chloride Level 107 Carbon Dioxide Level 23.9 Anion Gap 8 Estimat Glomerular Filtration Rate 166 Date/Time Source Procedure Growth Status 03/07/17 10:16 Nasal Aspirate Influenza Types A,B Antigen (DEMETRIUS) - Final NEGATIVE FOR FLU A AND B ANTIGEN.... Complete Physical Exam HEENT: Normocephalic; atraumatic; no jaundice. CHEST: CTA CARDIAC: RRR. ABDOMEN: Soft, nondistended, nontender; no hepatosplenomegaly; bowel sounds are present in all four quadrants. EXTREMITIES: No clubbing, cyanosis, or edema. SKIN: Normal; no rash; no jaundice. GAS APPLIANCE ADJUSTER: No focal deficits; alert and oriented times three. (Mary Sales) Assessment and Plan Plan ASSESSMENT: - Upper GIB. S/P EGD (03/08/17)---> Duodenal ulcer, Gastritis. Pathology. Still passing black stool. HH 8.07/04.1. Protonix. - Duodenal ulcer, gastritis. Pathology pending. PPI. - Anemia. HH slowly trending down 8.07/04.. PLAN: - JASS - Await pathology - D/C Protonix Gtt - Protonix 40mg po BID dosing - EGD in 4-6 weeks with colonoscopy as outpatient - If H. Pylori (+), will need tx - Would recommend keeping patient here overnight and rechecking HH in am - Will need FU SHOSHANA 1-2 weeks - Pt seen and examined by Dr. Schumacher and myself and this note is written on his behalf (Mary Sales) Plan Patient was seen and examined, agree with above note, we will wait for H&H if stable he can be discharged, will need repeat upper endoscopy and a colonoscopy as an outpatient in 1-2 month (Van Schumacher MD) Mary Sales Mar 09, 2017 10:22 Van Schumacher MD Mar 09, 2017 11:24
--- NOTE | 2017-03-09 10:24 | HHI.PR ---
Subjective Remarks Ambulating in the room, no chest pain or sob. No lightheadedness. Feels good. HGB dropped tp 8.1, off IVF. Diet is advanced, ate breakfast. Had a BM yesterday black in color, none since then. No abd pain. No n/v/d/c. Objective Vitals Vital Signs Date Time Temp Pulse Resp B/P (MAP) Pulse Ox O2 Delivery O2 Flow Rate FiO2 03/09/17 08:33 98.4 80 20 126/65 (85) 99 03/08/17 23:44 98.9 80 20 126/67 (86) 99 03/08/17 20:00 99.0 81 20 104/56 (72) 98 03/08/17 16:00 98.4 87 12 126/73 (90) 100 03/08/17 12:00 97.2 25 146/73 (97) 99 03/08/17 10:40 81 15 130/64 (86) 100 03/08/17 10:30 82 15 109/48 (68) 98 I/O 03/08/17 03/08/17 03/08/17 03/09/17 03/09/17 03/09/17 06:59 14:59 22:59 06:59 14:59 22:59 Intake Total 1812 ml 333 ml 590.4 ml 598.0 ml Output Total 250 ml Balance 1812 ml 83 ml 590.4 ml 598.0 ml Intake Oral 480 ml 480 ml IV Total 1812 ml 133 ml 110.4 ml 118.0 ml Other 200 ml Output Urine Total 250 ml # Voids 5 1 # Bowel Movements 1 2 0 Result Diagram: 03/09/1761103/09/17611 Objective Remarks GENERAL: Well-developed, well-nourished, in no acute distress. alert and orientated CARDIAC: Regular rhythm, regular rate. S1/S2 are heard. No murmurs gallops or rubs. LUNGS: Clear to auscultation bilaterally. No wheeze, rhonchi or rales. No use of accessory muscles on inspiration or expiration. ABDOMEN: Soft, nontender. Nondistended. Bowel sounds heard in all 4 quadrants. No organomegaly or masses. Negative rebound, negative guarding EXTREMITIES: No edema, pulses are equal bilaterally. No cyanosis or clubbing NEUROLOGY: Mood and affect appear appropriate. Cranial nerves II through XII grossly intact. Muscle strength 5/5 in upper and lower extremities bilaterally. Deep tendon reflexes are 2+ in upper and lower extremities bilaterally. A/P Problem List: (1) Melena ICD Code: K92.1 - Melena (2) Diabetes mellitus, new onset ICD Code: E11.9 - Type 2 diabetes mellitus without complications Assessment and Plan New onset diabetes, uncontrolled a1c 12.1 Patient with mild metabolic acidosis, however no anion gap, beta hydroxybutyrate was normal We'll start Accu-Cheks with sliding scale insulin. Add levemir 10 U at night. Hemoglobin A1c 12.1 Consult para educator, dietitian, has seen the patient. Patient needs insulin at DC. To f/u as OP with PCP and consultants. Melena with heme positive stool. Duodenal ulcer. Gastritis. S/P EGD with Bx and bleeding control by ablation of an ulcer Actively bleeding duodenal ulcer which was cauterized, was likely the reason for the bleeding Gastritis biopsy from the antrum to rule out H. pylori Clear liquid Protonix 40 mg daily Watch H&H and packed RBC as needed If patient has H. pylori patient will need treatment Follow-up biopsy Follow-up as an outpatient in 1 week to 2 weeks with hem/onc Colonoscopy as an outpatient Continue Protonix drip at this time. will DC on protonix 40 mg daily per DVT prevention Sequential compression devices, avoid chemical prophylaxis secondary to GI bleed Poss DC tomorrow if HGB stable. Discharge Planning DC home in stable condition. To follow-up with PCP and consultants as outpatient Medications per medication reconciliation Activity ad nando. as tolerated Diet: diabetic diet Meenakshi Hernández MD Mar 09, 2017 10:23
[2017-03-09 15:45] VITALS: BP 120/59; PULSE 84; RESP 16; TEMP 98.4; O2SAT 97
[2017-03-09 19:51] VITALS: BP 134/64; PULSE 90; RESP 16; TEMP 99.3; O2SAT 97
[2017-03-09] MEDS: PANTOPRAZOLE SOD 40 MG DELAYED RELEASE TAB PO SCH (20:59)
[2017-03-09] MEDS ORDERED: INSULIN DETEMIR 100 UNITS/ML VIAL SQ SCH (21:00)
[2017-03-10] MEDS: INSULIN ASPART SUPPLEMENTAL SCALE SQ SCH (07:42)
[2017-03-10 07:50] LABS: AUTOMATED NEUTROPHIL # 4.5 TH/MM3 (1.8-7.7); BASOPHIL % 0.4 % (0.0-2.0); EOSINOPHIL # 0.1 TH/MM3 (0-0.4); EOSINOPHIL % 1.3 % (0.0-4.0); HEMATOCRIT 24.7 % (39.0-51.0); HEMO FLAGS DIFF FINAL; LYMPH % 23.1 % (9.0-44.0); LYMPHOCYTE # 1.5 TH/MM3 (1.0-4.8); MEAN CELL VOLUME 86.7 FL (80.0-100.0); MEAN CORPUSCULAR HEMOGLOBIN 29.8 PG (27.0-34.0); MEAN CORPUSCULAR HGB CONC 34.3 % (32.0-36.0); MONO % 9.4 % (0.0-8.0); NEUT % 65.8 % (16.0-70.0); PLATELET COUNT 246 TH/MM3 (150-450); RED BLOOD COUNT 2.85 MIL/MM3 (4.50-5.90); WHITE BLOOD COUNT 6.7 TH/MM3 (4.0-11.0)
[2017-03-10 08:08] LABS: POTASSIUM 3.4 MEQ/L (3.5-5.1)
[2017-03-10 08:14] LABS: BICARBONATE 26.8 MEQ/L (21.0-32.0)
[2017-03-10 09:25] VITALS: BP 142/77; PULSE 79; RESP 15; TEMP 98.9; O2SAT 94
[2017-03-10] MEDS: SODIUM CHLORIDE 0.9% FLUSH 10 ML FLUSH IV FLUSH SCH (09:43)
[2017-03-10] MEDS: DOCUSATE SODIUM 50 MG/SENNA 8.6 MG TAB PO SCH (09:43)
[2017-03-10] MEDS: PANTOPRAZOLE SOD 40 MG DELAYED RELEASE TAB PO SCH (09:44)
--- NOTE | 2017-03-10 09:57 | HHI.GIFU ---
Subjective Remarks Patient was seen and examined, walking in the room comfortably, he said he had some dark stool but less than before a normal-appearing stable Objective Vitals I&O Vital Signs Date Time Temp Pulse Resp B/P (MAP) Pulse Ox O2 Delivery O2 Flow Rate FiO2 03/10/17 09:25 98.9 79 15 142/77 (98) 94 03/09/17 19:51 99.3 90 16 134/64 (87) 97 03/09/17 15:45 98.4 84 16 120/59 (79) 97 I/O 03/09/17 03/09/17 03/09/17 03/10/17 03/10/17 03/10/17 07:00 15:00 23:00 07:00 15:00 23:00 Intake Total 598.0 ml 720 ml Balance 598.0 ml 720 ml Intake Oral 480 ml 720 ml IV Total 118.0 ml # Voids 1 6 1 # Bowel Movements 0 1 1 Laboratory Laboratory Tests Test 03/10/17 06:50 White Blood Count 6.7 Red Blood Count 2.85 Hemoglobin 8.5 Hematocrit 24.7 Mean Corpuscular Volume 86.7 Mean Corpuscular Hemoglobin 29.8 Mean Corpuscular Hemoglobin Concent 34.3 Red Cell Distribution Width 13.0 Platelet Count 246 Mean Platelet Volume 8.5 Neutrophils (%) (Auto) 65.8 Lymphocytes (%) (Auto) 23.1 Monocytes (%) (Auto) 9.4 Eosinophils (%) (Auto) 1.3 Basophils (%) (Auto) 0.4 Neutrophils # (Auto) 4.5 Lymphocytes # (Auto) 1.5 Monocytes # (Auto) 0.6 Eosinophils # (Auto) 0.1 Basophils # (Auto) 0.0 CBC Comment DIFF FINAL Differential Comment Blood Urea Nitrogen 8 Creatinine 0.55 Random Glucose 248 Calcium Level 8.0 Sodium Level 140 Potassium Level 3.4 Chloride Level 106 Carbon Dioxide Level 26.8 Anion Gap 7 Estimat Glomerular Filtration Rate 152 Date/Time Source Procedure Growth Status 03/07/17 10:16 Nasal Aspirate Influenza Types A,B Antigen (DEMETRIUS) - Final NEGATIVE FOR FLU A AND B ANTIGEN.... Complete Physical Exam HEENT: Normocephalic; atraumatic; no jaundice. CHEST: CTA CARDIAC: RRR. ABDOMEN: Soft, nondistended, nontender; no hepatosplenomegaly; bowel sounds are present in all four quadrants. EXTREMITIES: No clubbing, cyanosis, or edema. SKIN: Normal; no rash; no jaundice. GLOBAL VP CREATIVE + CONTENT MARKETING: No focal deficits; alert and oriented times three. Assessment and Plan Plan Patient was seen and examined, hemoglobin stable, no active bleed, oK to discharge home will need repeat upper endoscopy and a colonoscopy as an outpatient in 1-2 month Van Schumacher MD Mar 10, 2017 09:57
[2017-03-10] MEDS ORDERED: FERR325T8 PO (10:17)
--- NOTE | 2017-03-10 10:19 | HHI.DS ---
Discharge Summary Admission Date Mar 07, 2017 at 12:30 Discharge Date: Mar 10, 2017 Admitting Diagnosis GI Bleed, hyperglycemia (1) Melena ICD Code: K92.1 - Melena Diagnosis: Principal (2) Diabetes mellitus, new onset ICD Code: E11.9 - Type 2 diabetes mellitus without complications (3) Uncontrolled diabetes mellitus ICD Code: E11.65 - Type 2 diabetes mellitus with hyperglycemia (4) GI bleed ICD Code: K92.2 - Gastrointestinal hemorrhage, unspecified Status: Acute Procedures EGD Brief History - From Admission Written by Chandler Flores, acting as scribe for Dr. Hernández on 03/07/17 at 17: 41. 61 year-old male with history of gastric ulcers over 25 years ago who presented to hospital because of dark stools and lightheadedness. Patient states that this morning he woke up and approximately 6:30 AM and he was lightheaded and he had a bowel movement and noticed he had dark black stools so he came to the hospital for evaluation. Patient indicates that last night he was having an episode of some nausea vomiting where he drank some water and he vomited water right back up he states that there might have been some red tinged to it. He was able to drink some tamika humphrey and it stayed down. Because of the black stools he came to the hospital for evaluation. Upon workup patient was found to have glucose 493 with mild metabolic acidosis. Beta hydroxybutyrate was unremarkable. Is recommended by the ER physician that the patient be admitted the hospital for evaluation by the GI physician for the melena and heme positive stool. Patient denies any polydipsia, polyphagia, weight changes, abdominal pain, chest pain, shortness of breath, dyspnea. CBC/BMP: 03/10/17 0650 03/10/17 0650 Significant Findings Laboratory Tests Test 03/07/17 10:23 03/07/17 12:10 03/07/17 12:55 03/07/17 18:25 White Blood Count 12.1 TH/MM3 (4.0-11.0) Red Blood Count 3.90 MIL/MM3 (4.50-5.90) Hemoglobin 11.2 GM/DL (13.0-17.0) 9.2 GM/DL (13.0-17.0) Hematocrit 33.1 % (39.0-51.0) 27.2 % (39.0-51.0) Neutrophils (%) (Auto) 78.9 % (16.0-70.0) Neutrophils # (Auto) 9.6 TH/MM3 (1.8-7.7) Activated Partial Thromboplast Time 20.3 SEC (24.3-30.1) Blood Urea Nitrogen 35 MG/DL (7-18) Random Glucose 493 MG/DL (74-106) Total Protein 6.2 GM/DL (6.4-8.2) Albumin 3.2 GM/DL (3.4-5.0) Calcium Level 8.4 MG/DL (8.5-10.1) Aspartate Amino Transf (AST/SGOT) 8 U/L (15-37) Sodium Level 135 MEQ/L (136-145) Carbon Dioxide Level 19.6 MEQ/L (21.0-32.0) Estimat Glomerular Filtration Rate 82 ML/MIN (>89) Hemoglobin A1c 12.1 % (4.3-6.0) Urine Glucose (UA) 1000 OR GREATER mg/dL Urine Ketones 15 mg/dL (NEG) Test 03/07/17 22:00 03/08/17 07:35 03/09/17 06:12 03/10/17 06:50 Hemoglobin 8.9 GM/DL (13.0-17.0) 8.5 GM/DL (13.0-17.0) 8.1 GM/DL (13.0-17.0) 8.5 GM/DL (13.0-17.0) Hematocrit 25.2 % (39.0-51.0) 25.7 % (39.0-51.0) 24.1 % (39.0-51.0) 24.7 % (39.0-51.0) Red Blood Count 2.99 MIL/MM3 (4.50-5.90) 2.85 MIL/MM3 (4.50-5.90) 2.85 MIL/MM3 (4.50-5.90) Blood Urea Nitrogen 21 MG/DL (7-18) Creatinine 0.47 MG/DL (0.60-1.30) 0.51 MG/DL (0.60-1.30) 0.55 MG/DL (0.60-1.30) Random Glucose 184 MG/DL (74-106) 190 MG/DL (74-106) 248 MG/DL (74-106) Calcium Level 7.6 MG/DL (8.5-10.1) 8.0 MG/DL (8.5-10.1) 8.0 MG/DL (8.5-10.1) Chloride Level 113 MEQ/L (98-107) Monocytes (%) (Auto) 9.2 % (0.0-8.0) 9.4 % (0.0-8.0) Potassium Level 3.4 MEQ/L (3.5-5.1) PE at Discharge GENERAL: Well-developed, well-nourished, in no acute distress. alert and orientated CARDIAC: Regular rhythm, regular rate. S1/S2 are heard. No murmurs gallops or rubs. LUNGS: Clear to auscultation bilaterally. No wheeze, rhonchi or rales. No use of accessory muscles on inspiration or expiration. ABDOMEN: Soft, nontender. Nondistended. Bowel sounds heard in all 4 quadrants. No organomegaly or masses. Negative rebound, negative guarding EXTREMITIES: No edema, pulses are equal bilaterally. No cyanosis or clubbing NEUROLOGY: Mood and affect appear appropriate. Cranial nerves II through XII grossly intact. Muscle strength 5/5 in upper and lower extremities bilaterally. Deep tendon reflexes are 2+ in upper and lower extremities bilaterally. Pt update on day of discharge Ambulating in the room. Says she feels better. Says he gets tired at times. No sob, chest pain. No and pain. Says had a BM and is less dark now. Feels comfortable to go home. knows to self inject insulin. Hospital Course 61 year-old male with history of gastric ulcers over 25 years ago who presented to hospital because of dark stools and lightheadedness. Patient was found with new onset uncontrolled diabetes A1c 12.1 , started treatment with insulin, has prosthodontist/educator consult, patient feels comfortable to self inject insulin. Also with melena, GIB-melena s/p EGD with cauterization of ulcer by Dr Winsome MARROQUIN , patient with duodenal ulcer/gastritis, received PPI IV Protonix, HGB was trending down but stable, did not require blood transfusion. Patient HGB remained stable after the procedure, cleared by GI for discharge. The patient was discharged in stable condition to [facility] eto follow up as OP with pCP and consultants. New onset diabetes, uncontrolled a1c 12.1 Patient with mild metabolic acidosis, however no anion gap, beta hydroxybutyrate was normal We'll start Accu-Cheks with sliding scale insulin. Add levemir 10 U at night. Hemoglobin A1c 12.1 Consult prosthodontist/educator, dietitian, has seen the patient. Patient needs insulin at DC. To f/u as OP with PCP and consultants. Melena with heme positive stool. Duodenal ulcer. Gastritis. S/P EGD with Bx and bleeding control by ablation of an ulcer Actively bleeding duodenal ulcer which was cauterized, was likely the reason for the bleeding Gastritis biopsy from the antrum to rule out H. pylori Clear liquid Protonix 40 mg daily Watch H&H and packed RBC as needed If patient has H. pylori patient will need treatment Follow-up biopsy Follow-up as an outpatient in 1 week to 2 weeks with hem/onc Colonoscopy as an outpatient Continue Protonix drip at this time. will DC on protonix 40 mg daily per DVT prevention Sequential compression devices, avoid chemical prophylaxis secondary to GI bleed Poss DC tomorrow if HGB stable. Discharge Planning DC home in stable condition. To follow-up with PCP and consultants as outpatient Medications per medication reconciliation Activity ad nando. as tolerated Diet: diabetic diet Pt Condition on Discharge: Stable Discharge Disposition: Discharge Home Discharge Time: > 30 minutes Discharge Instructions DIET: Follow Instructions for: Diabetic Diet Activities you can perform: Regular-No Restrictions New Medications: Blood Glucose Monitoring W/Device (Glucocom Blood Glucose Mo W/Device) 1 Kit Kit KIT .ROUTE DIRECTED for Blood Sugar Management, #1 Ferrous Sulfate (Ferrous Sulfate) 325 Mg (65 Mg Iron) Tablet 325 MG PO DAILY for Nutritional Supplement, #30 TAB 0 Refills Glucocom Test Strips (Glucocom Test Strips) 1 Yumiko Yumiko EA .ROUTE DIRECTED for Blood Sugar Management, #1 Insulin Aspart Inj (Novolog Inj) 1,000 Unit/10 Ml Vial 1-9 UNITS SQ ACHS for Blood Sugar Management, #10 ML 0 Refills Max dose at bedtime:( )units; sugars less than 70,(0)units; sugars 150-199,(1) unit; sugars 200-249,(3) units; sugars 250-299,(5) units; sugars 300-349,(7) units; sugars greater than 349,(9) units Insulin Detemir Inj (Levemir Inj) 1,000 unit/ 10 ML Vial 10 UNITS SQ HS for Blood Sugar Management, #30 VIAL 0 Refills Do not mix with any other Insulin. Insulin Syringe/U-100/31G X 5/16" 1 ml (Insulin Syringe/U-100/31G X 5/16" 1 ml) 31 Gauge X 5/16" Mis EA .ROUTE DIRECTED for Blood Sugar Management, #1 0 Refills Lancets (Lancets) 1 Mis Mis EA .ROUTE DIRECTED for Blood Sugar Management, #1 0 Refills Pantoprazole (Protonix) 40 Mg Tab 40 MG PO DAILY for Ulcer Prevention, #30 TAB 0 Refills Continued Medications: Glucosamine (Glucosamine) 1,000 Mg Cap 1000 MG PO DAILY for Herbal Supplements, CAP 0 Refills Discontinued Medications: Aspirin (Aspirin Low Dose) 81 Mg Chew 81 MG CHEW DAILY, TAB 0 Refills Meenakshi Hernández MD Mar 10, 2017 10:19
[2017-03-10] MEDS ORDERED: METF-382 PO (12:32)
== END 2017-03-10 11:09 | disposition home or self-care (01) | DRG 378 ==
LOC: PHED 08:47 → PHEDA 12:30 → PH5A 14:05
PROVIDERS: ADMIT Hospitalist; ATTEND Hospitalist
PROC: 0DB68ZX Excision of Stomach, Via Natural or Artificial Opening Endoscopic, Diagnostic (ICD-10-PCS; 2017-03-08)
PROC: 0W3P8ZZ Control Bleeding in Gastrointestinal Tract, Via Natural or Artificial Opening Endoscopic (ICD-10-PCS; principal; 2017-03-08 09:53)
DX: K26.4 Chronic or unspecified duodenal ulcer with hemorrhage (principal); E87.2 Acidosis; E11.65 Type 2 diabetes mellitus with hyperglycemia; K29.70 Gastritis, unspecified, without bleeding; D64.9 Anemia, unspecified; Z87.11 Personal history of peptic ulcer disease
CPT/HCPCS: 80048; 80053; 81001; 82010; 82948; 83036; 83690; 85014; 85018; 85025; 85610; 85730; 86077; 86850; 86870; 86900; 86901; 86902; 86920; 86922; 87804; 88305; 88312; 93005; 96365; 96366; 96368; 96372; C9113; J1815; J7030